=== PATIENT | male | born 1965 | race Caucasian/White ===

== ENCOUNTER 2018-04-24 05:25 | Day surgery (SDC) | payer BC ==
[~2018-04-24] VITALS: Ht 188 cm; Wt 107.5 kg
[2018-04-24 05:42] VITALS: BP 163/88; PULSE 98; TEMP 98.2
[2018-04-24] MEDS ORDERED: NORVASC 5MG5 MG/TAB PO (06:06)
[2018-04-24] MEDS ORDERED: PRINIVIL40 MG PO (06:06)
[2018-04-24] MEDS ORDERED: ALEVE 220MG220 MG PO (06:07)
[2018-04-24] MEDS ORDERED: ZANTAC 150MG T150 MG PO (06:07)
[2018-04-24] MEDS ORDERED: DUPIXENT300 MG/2 M SQ (06:09)
[2018-04-24 09:35] VITALS: BP 102/51; PULSE 82; TEMP 98.2
[2018-04-24 09:50] VITALS: BP 111/64; PULSE 87
[2018-04-24] MEDS ORDERED: NORCO 325 MG-51 TAB PO (10:00)
[2018-04-24 10:05] VITALS: BP 108/56; PULSE 81
== END 2018-04-24 10:20 | disposition home or self-care (01) ==
LOC: SDCO 05:25
DX: K42.9 Umbilical hernia without obstruction or gangrene (principal); K40.90 Unilateral inguinal hernia, without obstruction or gangrene, not specified as recurrent; Z79.899 Other long term (current) drug therapy; I10 Essential (primary) hypertension; G47.30 Sleep apnea, unspecified; E78.00 Pure hypercholesterolemia, unspecified; F17.210 Nicotine dependence, cigarettes, uncomplicated
CPT/HCPCS: C1781; J1885; J2250; J2704; J3010; J7120